=== PATIENT | female | born 1965 | race African-American/Black ===

== ENCOUNTER 2022-08-12 14:09 | Emergency (ER) | payer MEDICAID, OTHER ==
[~2022-08-12] VITALS: Ht 157.5 cm; Wt 95.5 kg
[2022-08-12] MEDS ORDERED: ASPirin 81 mg TAB PO ONE (15:00)
[2022-08-12 15:12] LABS: Albumin 3.8 g/dL (3.4-5.0); BUN/Creatinine Ratio 20.9 (10.0-20.0); Calcium 9.2 mg/dL (8.5-10.1); Potassium 4.2 mmol/L (3.5-5.1)
[2022-08-12 15:15] LABS: Bilirubin, Total 0.6 mg/dL (0.2-1.0); Total Protein 8.4 g/dL (6.4-8.2)
[2022-08-12 15:33] LABS: INR 1.04 (0.9-1.15); Partial Thromboplastin Time 31.9 SEC (24.5-34.5)
[2022-08-12 16:01] LABS: Basophils # (auto) 0 10 ^3/uL (0-0.2); Basophils % (auto) 0.3 % (0.0-2.0); Eosinophils # (auto) 0.1 10 ^3/uL (0-0.8); Eosinophils % (auto) 0.7 % (0.0-7.0); Hematocrit 48.1 % (36.0-46.0); Hemoglobin 16.6 g/dL (12.2-16.2); Lymphocytes # (auto) 3.3 10 ^3/uL (0.4-5.4); Lymphocytes % (auto) 46.6 % (10.0-50.0); Mean Corpuscular Hemoglobin 32.9 pg (28.0-32.0); Mean Corpuscular Hgb Conc. 34.6 g/dL (32.0-36.0); Mean Corpuscular Volume 95.3 fL (80.0-100.0); Monocytes # (auto) 0.3 10 ^3/uL (0-1.3); Monocytes % (auto) 4.9 % (0.0-12.0); Neutrophils # (auto) 3.3 10 ^3/uL (1.6-8.6); Neutrophils % (auto) 47.5 % (37.0-80.0); Nucleated Red Blood Cells % 0.5 %; Red Blood Cells 5.04 10^6/uL (4.0-5.20); Red Cell Distribution Width 13.3 % (11.8-14.3)
[2022-08-12] MEDS ORDERED: DIPH25CA66 PO (16:15)
[2022-08-12 18:01] VITALS: BP 140/61
== END 2022-08-12 18:05 | disposition home or self-care (01) ==
LOC: ER 14:09
DX: R07.89 Other chest pain (principal); T78.40XA Allergy, unspecified, initial encounter; F17.210 Nicotine dependence, cigarettes, uncomplicated; E11.9 Type 2 diabetes mellitus without complications; E78.5 Hyperlipidemia, unspecified; I10 Essential (primary) hypertension; R06.02 Shortness of breath; Z88.0 Allergy status to penicillin; X58.XXXA Exposure to other specified factors, initial encounter
CPT/HCPCS: 36415; 71045; 80053; 83735; 83880; 84443; 84484; 85025; 85610; 85730; 93005